=== PATIENT | female | born 2000 | race Hispanic/Latino ===

== ENCOUNTER 2020-05-15 19:25 | Emergency (ER) | payer BC, SELFPAY ==
--- NOTE | ~2020-05-15 | XR_ITS ---
EXAMINATION: XR ankle LT min 3V DATE: 05/15/2020 19:40 INDICATION: Left ankle injury. TECHNIQUE: 4 views of left ankle were obtained. COMPARISON: None. FINDINGS: Bone alignment is normal. No fracture. There is mild osteoarthritis of talonavicular joint. There is ankle soft tissue swelling. IMPRESSION: 1. No acute fracture. Reviewed, dictated and finalized at location A. CCO STRIPPER IMPRESSION: 1. No acute fracture.
[2020-05-15 19:34] VITALS: BP 130/64; PULSE 97; RESP 20; TEMP 37.2; O2SAT 98
--- NOTE | 2020-05-15 19:47 | ED.GENADULT ---
HPI - General Adult General Chief complaint: Extremity Injury, Lower Stated complaint: lt miki Source: patient Mode of arrival: wheelchair Limitations: physical limitation History of Present Illness HPI narrative: Patient presents for evaluation of left ankle pain. She indicates she was running around 1400 this afternoon when she inverted her left foot upon stepping on an incline. She did fall but did not hit her head or have loss of consciousness. She states for the first hour to hour and a half following the injury she was able to tolerate weightbearing. His time has progressed, weightbearing has become increasingly difficult. She states at rest her pain is 6 out of 10 in severity but increases with weightbearing. She denies any paresthesias. She took 400mg Ibuprofen around 1745. She has an IUD. LMP 1 week ago. No additional complaints or concerns. Related Data Home Medications Medication Instructions Recorded Confirmed levonorgestrel 14 mcg/24 hrs (3 1 device I-UTERINE ONCE 06/22/19 yrs) 13.5 mg intrauterine device Allergies Allergy/AdvReac Type Severity Reaction Status Date / Time No Known Allergies Allergy Verified 06/22/19 09:23 Review of Systems Review of Systems: Narrative: CONSTITUTIONAL: Denies fever, chills, or sweats. EYES: Denies visual changes, redness, or discharge. ENT: Denies rhinorrhea, congestion, sore throat, or otalgia. CARDIOVASCULAR: Denies chest pain, palpitations, or edema. RESPIRATORY: Denies cough or dyspnea. GASTROINTESTINAL: Denies abdominal pain, nausea, vomiting, or diarrhea. GENITOURINARY: Denies dysuria or hematuria. SKIN: Denies rash or itching. MUSCULOSKELETAL: Reports left ankle pain. Denies back pain or myalgias NEUROLOGIC: Denies headache, numbness, dizziness, or weakness. PSYCHIATRIC: Denies anxiety or depression. [facility] Past Medical History Medical History (Updated 05/15/20 @ 19:57 by Jeremi Preciado, DESI, JENNIFER) No pertinent past medical history Surgical History Surgical History H/O wisdom tooth extraction History of surgical removal of pilonidal cyst Family History Family History Father Hypertension, Onset Age: 35 Patient's father is in good health Grandparent Cerebrovascular accident, Onset Age: 75 Social History Social History (Reviewed 05/15/20 @ 19:54 by Jeremi Preciado, [facility], ) Smoking status: Never smoker Second hand tobacco smoke exposure: No Alcohol intake: never Substance use: never Living arrangements: with family Occupation/Education: student Gender identity (if verbalized by the patient): Female Sexual Orientation (if Verbalized by the Patient): Straight or Heterosexual Spiritual care concerns: No Exam Narrative: Exam Narrative: GENERAL: Well-appearing, well-nourished, and in no acute distress. HEAD: Normocephalic, atraumatic. EYES: PERRLA and EOMI. ENT: Nares clear, no rhinorrhea or epistaxis. Mucous membranes moist. Oropharynx without tonsillar hypertrophy exudate or other lesions. Bilateral TMs pearly read nonbulging NECK: Supple. No adenopathy or masses. No carotid bruits or JVD CHEST: Clear to auscultation. No respiratory distress. No wheezes rales or rhonchi HEART: Regular rate and rhythm. No murmur heard. Normal peripheral pulses. ABDOMEN: Soft, nontender, nondistended, normal active bowel sounds. EXTREMITIES: Able to dorsi and plantarflex the left foot. There is swelling in the left lateral ankle with tenderness over the left lateral malleolus. There is no tenderness over the Achilles tendon. Left pedal pulse 2+ with sensation intact SKIN: Warm, dry, no rash. NEURO: No focal deficits. Alert and oriented x3. PSYCH: Normal mood and affect. Course Course Emergency Course: 19-year-old female that presented with left ankle pain and swelling following a fall at approximately 1400 when
== END 2020-05-15 20:03 | disposition home or self-care (01) ==
PROVIDERS: Emergency Provider Nurse Practitioner; PCP Pediatrics
DX: M25.572 Pain in left ankle and joints of left foot (principal); S93.402A Sprain of unspecified ligament of left ankle, initial encounter; X50.9XXA Other and unspecified overexertion or strenuous movements or postures, initial encounter
CPT/HCPCS: 29515; 73610; 99213; 99214; G0463

== ENCOUNTER 2022-03-12 18:11 | Emergency (ER) | payer BC, SELFPAY ==
--- NOTE | ~2022-03-12 | CT_ITS ---
EXAMINATION: CTA chest PE abdomen pel DATE: 03/12/2022 19:42 INDICATION: sob, elevated dimer, tachycardia, vomiting TECHNIQUE: Computed tomography angiography (CTA) of the chest was performed with 100 mL Omnipaque-350 intravenous contrast timed to evaluate the pulmonary arteries, followed by portal venous phase imagi ng of the abdomen and pelvis. Coronal maximum intensity projection 3D-reconstructions were created by the technologist. The dose-length product (DLP) was 1504.28 mGy-cm. Automated exposure control and i terative reconstruction technique were employed. COMPARISON: X-ray chest, same date. FINDINGS: CHEST: Lung parenchyma and airways: Acinar opacities in the lateral segment of the right middle lobe. Pleura: Unremarkable. Thoracic inlet, axillae and chest wall: Unremarkable. Thoracic aorta: Normal. Mediastinum: Prominent right hilar lymph nodes. Heart and pericardium: Normal. Coronary artery calcifications: Absent. Thoracic bones: No acute osseous finding. Pulmonary arteries: Study quality: Degraded by motion such that subsegmental and non-occlusive segmen kristin emboli could be missed. No pulmonary emboli detected. ABDOMEN/PELVIS: Liver: Normal. Biliary/Gallbladder: Gallbladder is normal. No bile duct dilation. Pancreas: No mass or duct dilation. Spleen: Normal. Adrenals:No mass. Kidneys: No mass, stone, or hydronephrosis. GI tract: No small or large bowel dilation. Normal appendix. Mesentery/Peritoneum: No ascites, mass, or free air. Retroperitoneum: No mass. Pelvis: Bladder wall thickening. Low positioned IUD, with the bilateral lens projecting into the myom etrium, more notably on the left. Remaining pelvic organs are within normal limits. Soft Tissues: Soft tissues and body wall unremarkable. Abdominopelvic bones: No acute osseous finding. IMPRESSION: Motion degraded examination, no definite CT evidence of acute pulmonary embolus. Right middle lobe pn eumonia. The limbs of the slightly low positioned IUD terminate within the myometrium, correlate with pelvic pain/bleeding and consider referral for replacement. Possible cystitis. Reviewed, dictated and finalized at location K. RANCE ADMINISTRATIVE ASSISTANT IMPRESSION: Motion degraded examination, no definite CT evidence of acute pulmonary embolus . Right middle lobe pneumonia. The limbs of the slightly low positioned IUD ter minate within the myometrium, correlate with pelvic pain/bleeding and consider referral for replacement. Possible cystitis.
--- NOTE | ~2022-03-12 | XR_ITS ---
EXAMINATION: XR chest 2V Exam Date/Time: 03/12/2022 18:35 CERTIFIED MEDICAL TRANSCRIPTIONIST HISTORY: SOB, CP, CONGESTION, THROWING UP, FEVER SINCE SATURDAY. Comparison: 11/30/2020. RESULT: Lines, tubes, and devices: None. Lungs and pleura: Ill-defined patchy airspace disease in the right lower lobe. Cardiomediastinal silhouette: Stable. Other: No acute osseous or upper abdominal finding. IMPRESSION: Right lower lobe opacity concerning for pneumonia. Reviewed, dictated and finalized at location K. IFIED MEDICAL TRANSCRIPTIONIST
[2022-03-12 18:16] VITALS: BP 126/68; PULSE 100; RESP 20; TEMP 37.5; O2SAT 96
--- NOTE | 2022-03-12 18:21 | ECG_ITS ---
Measurements Intervals [place] Rate: 91 P: 38 VA: 140 QRS: 48 QRSD: 113 T: 4 QT: 335 QTc: 414 Interpretive Statements SINUS RHYTHM BASELINE ARTIFACT MODERATE INTRAVENTRICULAR CONDUCTION DELAY [110+ ms QRS DURATION] NONSPECIFIC T-WAVE ABNORMALITY BORDERLINE ECG NO PREVIOUS ECG AVAILABLE FOR COMPARISON Electronically Signed On 03-13-2022 17:40:02 FLUTE POLISHER by Elroy Kolb M.D.
[2022-03-12 18:35] LABS: Basophils Percent Auto 0.5 % (0.2-1.2); Eosinophils Absolute Auto 0.1 K/mm3 (0-0.3); Eosinophils Percent Auto 1.3 % (0-4.4); Hematocrit 46.8 % (37.0-47.0); Immature Granulocyte Absolute 0.04 K/mm3 (0.00-0.031); Immature Granulocyte Percent A 0.5 % (0-0.5); Lymphocytes Absolute Auto 1.62 K/mm3 (0.9-3.2); Lymphocytes Percent Auto 20.4 % (18.3-44.2); Mean Corpuscular HGB Conc 34.2 g/dl (32-36); Mean Corpuscular Hemoglobin 29.2 pg (26-34); Mean Corpuscular Volume 85.4 fl (80-100); Monocytes Absolute Auto 1.3 K/mm3 (0.1-0.6); Monocytes Percent Auto 16.1 % (2.6-8.5); Neutrophils Absolute Auto 4.9 K/mm3 (1.3-6.7); Neutrophils Percent Auto 61.2 % (45.5-73.1); Platelet Count Result 242 k/mm3 (150-375); Red Blood Count 5.48 M/mm3 (4.2-5.4); Red Cell Distribution Width 12.6 % (11.5-14.5); White Blood Count 7.9 K/mm3 (4.5-10.0)
[2022-03-12 18:48] LABS: Prothrombin Time 12.9 Seconds (11.1-14.7)
[2022-03-12 18:49] LABS: Partial Thromboplastin Time 31.6 SECONDS (22.3-36.8)
[2022-03-12 18:50] LABS: Alanine Aminotransferase 40 U/L (6-35); Albumin Level 4.6 g/dL (3.5-5.1); Alkaline Phosphatase 97 U/L (38-126); Anion Gap 8 mmol/L (8-16); Aspartate Amino Transferase 38 U/L (14-36); Bilirubin,Total 0.4 mg/dL (0.2-1.3); Blood Urea Nitrogen 5 mg/dL (7-17); Calcium 9.5 mg/dL (8.4-10.2); Carbon Dioxide 29 mmol/L (22-30); Chloride 104 mmol/L (98-107); Estimated CRCL calculation 142 ml/min; Estimated Glomerular Filt Rate > 60; Glucose 89 mg/dL (65-110); Lipase 19 U/L (23-300); Potassium 3.8 mmol/L (3.4-5.0); Sodium 141 mmol/L (137-145)
[2022-03-12 18:53] LABS: D Dimer 0.74 ug/mL (<0.48)
[2022-03-12 18:56] VITALS: O2SAT 99
[2022-03-12 19:00] VITALS: PULSE 117; RESP 23; O2SAT 96
[2022-03-12 19:01] LABS: Add Urine Microscopic? YES; Appearance Urine Slightly Cloudy (Clear); Bilirubin Urine Negative (Negative); Blood Urine 3+ (Negative); Color Urine Light Yellow (Yellow); Glucose Urine UA Negative (Negative); Ketones Urine Negative (Negative); Leukocyte Esterase Ur Negative LEU/UL (Negative); Nitrate Urine Negative (Negative); Protein Urine Negative (Negative); Specific Grav Ur <= 1.005 (1.001-1.035); Urobilinogen Urine 0.2 mg/dL (<2.0); pH Urine 6.5 (5.0-9.0)
[2022-03-12 19:04] LABS: Mucus Urine Rare /lpf; Squamous Epithelial Cell Urine Few /hpf (Few); WBC Urine 0-3 /hpf
--- NOTE | 2022-03-12 19:04 | ED.URI ---
HPI - URI/Sore Throat General Chief Complaint: Upper Respiratory Infection Stated Complaint: URI, N/V Time Seen by Provider: 03/12/22 18:19 Source: patient Mode of arrival: ambulatory Limitations: no limitations History of Present Illness HPI Narrative: This is a 21-year-old female that presents to the emergency department for viral symptoms present over the last 3 days. Reports cough, congestion, sore throat, nausea, and vomiting. Reports she has not been able to keep much down. Reports she also feels short of breath. Denies chest pain, or lower extremity edema. Related Data Home Medications Medication Instructions Recorded Confirmed ibuprofen 200 mg capsule 200 mg PO Q6H PRN 05/31/20 06/20/21 levonorgestrel 20 mcg/24 hours (8 1 device intrauterine ONCE 05/31/20 06/20/21 yrs) 52 mg intrauterine device (Mirena) escitalopram oxalate 20 mg tablet 20 mg PO DAILY 06/20/21 06/20/21 (Lexapro) lisdexamfetamine 20 mg capsule 20 mg PO DAILY 06/20/21 06/20/21 (Vyvanse) Allergies Allergy/AdvReac Type Severity Reaction Status Date / Time No Known Allergies Allergy Verified 03/12/22 18:39 Review of Systems Review of Systems: CONSTITUTIONAL: Reports fever EYES: Denies redness, or discharge. ENT: Reports rhinorrhea, congestion, sore throat CARDIOVASCULAR: Denies chest pain RESPIRATORY: Reports cough and dyspnea. GASTROINTESTINAL: Reports abdominal pain, nausea, vomiting. Denies diarrhea. GENITOURINARY: Denies dysuria All systems reviewed & are unremarkable except as noted in HPI and below PMFSH Past Medical History Medical History ADD (attention deficit disorder) Anxiety Pneumonia Wears glasses Surgical History Surgical History H/O wisdom tooth extraction History of surgical removal of pilonidal cyst Family History Family History Father Hypertension, Onset Age: 35 Patient's father is in good health Grandparent Cerebrovascular accident, Onset Age: 75 Other Asthma Social History Social History (Reviewed 06/20/21 @ 11:02 by JOSIAS Crooks Smoking status: Never smoker Second hand tobacco smoke exposure: No Alcohol intake: never Substance use: never Gender identity (if verbalized by the patient): Female Sexual Orientation (if Verbalized by the Patient): Straight or Heterosexual Spiritual care concerns: No Exam Narrative: GENERAL: Well-appearing, well-nourished, and in no acute distress. HEAD: Normocephalic, atraumatic. EYES: EOMI. ENT: Nares clear, no rhinorrhea or epistaxis. Mucous membranes moist. Oropharynx without tonsillar hypertrophy exudate or other lesions. Bilateral TMs pearly read non-bulging NECK: Supple. No adenopathy or masses. CHEST: Clear to auscultation. No respiratory distress. No wheezes rales or rhonchi HEART: Regular rate and rhythm. No murmur heard. Normal peripheral pulses. ABDOMEN: Soft, nondistended, normal active bowel sounds. Mild tenderness to palpation in the epigastrium, without guarding. No CVA tenderness EXTREMITIES: Normal range of motion. No edema. SKIN: Warm, dry, no rash. NEURO: No focal deficits. Alert and oriented x3. PSYCH: Normal mood and affect Course Vital Signs Vital signs: Vital Signs Temperature 99.5 F 03/12/22 18:16 Pulse Rate 100 03/12/22 18:16 Respiratory Rate 20 03/12/22 18:16 Blood Pressure 126/68 03/12/22 18:16 Pulse Oximetry 96 03/12/22 18:16 Temperature 99.5 F 03/12/22 18:16 Pulse Rate 104 H 03/12/22 19:45 Respiratory Rate 21 H 03/12/22 19:45 Blood Pressure 122/78 03/12/22 19:45 Pulse Oximetry 100 03/12/22 19:45 Oxygen Delivery Room Air 03/12/22 18:56 MDM - URI/Sore Throat MDM Narrative Medical decision making narrative: Patient presents the emergency department for cold couple of days. Endor
[2022-03-12] MEDS: FAMOTIDINE 20 MG/2 ML VIAL IV PUSH (19:06)
[2022-03-12] MEDS: ONDANSETRON INJ 4 MG/2 ML VIAL IV PUSH (19:06)
[2022-03-12] MEDS: SODIUM CHLORIDE 0.9% IV 1,000 ML 999 ML IV CONT (19:06)
[2022-03-12 19:45] VITALS: BP 122/78; PULSE 104; RESP 21; O2SAT 100
[2022-03-12 21:41] LABS: Influenza A QL RT-PCR Negative (Negative); Influenza B QL RT-PCR Negative (Negative); SARS-CoV-2 RNA PCR Negative
[2022-03-12 21:56] VITALS: PULSE 84; RESP 14; O2SAT 98
== END 2022-03-12 21:57 | disposition home or self-care (01) ==
PROVIDERS: Emergency Provider Physician Assistant; PCP Physician Assistant
DX: J18.9 Pneumonia, unspecified organism (principal); T83.32XA Displacement of intrauterine contraceptive device, initial encounter; Z20.822 Contact with and (suspected) exposure to COVID-19; F98.8 Other specified behavioral and emotional disorders with onset usually occurring in childhood and adolescence; F41.9 Anxiety disorder, unspecified; Z87.01 Personal history of pneumonia (recurrent); I45.9 Conduction disorder, unspecified; R94.31 Abnormal electrocardiogram [ECG] [EKG]; Y84.8 Other medical procedures as the cause of abnormal reaction of the patient, or of later complication, without mention of misadventure at the time of the procedure
CPT/HCPCS: 36415; 71046; 71275; 74177; 80053; 81001; 81025; 83690; 85025; 85380; 85610; 85730; 87636; 93005; 96361; 96365; 96375; 99284; J1741; J2405; J7030; Q9967

== ENCOUNTER → 2022-03-14 12:42 | Outpatient (CLI) | payer BC, SELFPAY ==
--- NOTE | ~2022-03-14 | US_ITS ---
Pelvic ultrasound. Clinical History: Malpositioned IUD Technique: Realtime transabdominal and transvaginal scanning of the pelvis was performed. Color flow Doppler and Doppler spectral analysis were performed. Correlation made with CT dated 03/12/2022 Findings: The uterus is anteverted. The endometrial stripe has a thickness of 4 mm. IUD somewhat tow ards the lower uterine segment, but otherwise appears unremarkable. No focal mass is identified. The right ovary measures 3.1 x 1.6 x 2.3 cm. No significant right ovarian or adnexal mass is seen. The left ovary measures 2.7 x 1.9 x 2.7 cm. No significant left ovarian or adnexal mass is seen. Vascular flow present in both ovaries on Doppler spectral analysis. There is no evidence of free fluid in the cul de sac. Impression: IUD is with the endometrial cavity at the lower uterine segment. Reviewed, dictated and finalized at [place] [facility]. A SENIOR RECRUITER Impression: IUD is with the endometrial cavity at the lower uterine segment.
== END ==
PROVIDERS: PCP Student in an Organized Health Care Education/Training Program; Visit Provider Student in an Organized Health Care Education/Training Program
DX: T83.32XA Displacement of intrauterine contraceptive device, initial encounter (principal)
CPT/HCPCS: 76830; 76856

== ENCOUNTER 2022-04-02 09:59 | Outpatient (CLI) | payer BC, SELFPAY ==
--- NOTE | ~2022-04-02 | XR_ITS ---
XR chest 2V DATE: 04/02/2022 10:18 INDICATION: Chest heaviness. History of pneumonia. TECHNIQUE: PA and lateral views COMPARISON: 03/12/2022 CTA chest FINDINGS: Normal heart size. No hilar or mediastinal enlargement. No pulmonary infiltrate or consolid ation, pleural effusion or pulmonary vascular congestion or pneumothorax. Included skeletal structures are unremarkable. IMPRESSION: Negative Reviewed, dictated and finalized at location B. OFFICE CLERK IMPRESSION: Negative
== END 2022-04-02 10:00 | disposition home or self-care (01) ==
PROVIDERS: PCP Physician Assistant; Visit Provider Physician Assistant
DX: Z87.01 Personal history of pneumonia (recurrent) (principal)
CPT/HCPCS: 71046

== ENCOUNTER 2022-05-23 15:41 | Outpatient (CLI) | payer BC, SELFPAY ==
--- NOTE | ~2022-05-23 | XR_ITS ---
XR chest 2V DATE: 05/23/2022 16:00 INDICATION: Chronic cough. Pneumonia 2 months ago. TECHNIQUE: 2 views COMPARISON: 04/02/2022 2 view chest FINDINGS: Normal heart size. No hilar or mediastinal enlargement. The lungs are normally inflated and clear of infiltrate or consolidation. No pleural effusion or pulmonary vascular congestion or pneumo thorax. Included skeletal structures are unremarkable. IMPRESSION: Negative Reviewed, dictated and finalized at location B. ACE LINER IMPRESSION: Negative
== END 2022-05-23 15:42 | disposition home or self-care (01) ==
LOC: ANHIMG 15:43
PROVIDERS: PCP Physician Assistant; Visit Provider Physician Assistant
DX: R05.3 Chronic cough (principal)
CPT/HCPCS: 71046

== ENCOUNTER 2023-10-21 10:35 | Outpatient (CLI) | payer BC, SELFPAY ==
--- NOTE | ~2023-10-21 | CT_ITS ---
CT of the Abdomen and Pelvis: Indication: Abnormal findings of blood chemistry Technique: 2.5 mm axial scans were obtained through the abdomen and pelvis prior to and following in travenous administration of 100 cc of Omnipaque 350. Dose reduction technique was used on this scan b y utilizing automated exposure control and iterative reconstruction technique. The dose-length produc t (DLP) was 3040.90 mGy-cm. COMPARISON: 03/12/2022 Findings: Scans through the lung bases are unremarkable. The liver, spleen, pancreas, gallbladder, adrenals and kidneys are within normal limits. No evidence of aortic aneurysm. No lymphadenopathy. No bowel obstruction or bowel wall thickening. There is no evidence to suggest acute appendicitis. Images through the pelvis were performed. Urinary bladder unremarkable. No adnexal mass seen. IUD in place. No ascites. Impression: No significant abnormalities seen. Reviewed, dictated and finalized at [facility]. Impression: No significant abnormalities seen.
== END 2023-10-21 10:36 | disposition home or self-care (01) ==
LOC: ANHIMG 10:41
PROVIDERS: Visit Provider Obstetrics & Gynecology
DX: R79.89 Other specified abnormal findings of blood chemistry (principal)
CPT/HCPCS: 74178; Q9967

== ENCOUNTER 2024-01-17 09:14 | Outpatient (CLI) | payer BC, SELFPAY ==
[2024-01-18 11:49] LABS: DHEA-Sulfate 762 mcg/dL (14-349); Prolactin 12.7 ng/mL
[2024-01-21 23:04] LABS: Testosterone Total 32 ng/dL (2-45)
== END 2024-01-17 09:15 | disposition home or self-care (01) ==
LOC: ANHGOSHLAB 09:16
PROVIDERS: Visit Provider Nurse Practitioner Family
DX: L68.0 Hirsutism (principal)
CPT/HCPCS: 36415; 82627; 84146; 84403

== ENCOUNTER 2024-01-30 14:17 | Outpatient (CLI) | payer BC, SELFPAY ==
--- NOTE | ~2024-01-30 | CT_ITS ---
CT of the Abdomen and Pelvis: Indication: Adrenal gland lesion, elevated DHEA Technique: 2.5 mm axial scans were obtained through the abdomen and pelvis prior to and following in travenous administration of 100 cc of Omnipaque 350. Dose reduction technique was used on this scan b y utilizing automated exposure control and iterative reconstruction technique. The dose-length produc t (DLP) was 2872.50 mGy-cm. COMPARISON: 10/21/2023 Findings: Scans through the lung bases are unremarkable. The liver, spleen, pancreas, gallbladder, adrenals and kidneys are within normal limits. No evidence of aortic aneurysm. No lymphadenopathy. No bowel obstruction or bowel wall thickening. There is no evidence to suggest acute appendicitis. Images through the pelvis were performed. Urinary bladder unremarkable. No pelvic mass seen. IUD in p lace. No ascites. Impression: No significant abnormalities seen. Adrenal glands are unremarkable. Reviewed, dictated and finalized at [facility]. INSTRUCTOR Impression: No significant abnormalities seen. Adrenal glands are unremarkable.
== END 2024-01-30 14:18 | disposition home or self-care (01) ==
PROVIDERS: Visit Provider Obstetrics & Gynecology
DX: R79.89 Other specified abnormal findings of blood chemistry (principal)
CPT/HCPCS: 74178; Q9967